=== PATIENT | female | born 1980 | race Caucasian/White ===

== ENCOUNTER 2019-04-16 02:07 | Emergency (ER) | payer OTHER ==
[~2019-04-16] VITALS: Ht 167.6 cm; Wt 49.0 kg
[2019-04-16] MEDS ORDERED: ZOFRAN ODT4 MG PO (03:40)
[2019-04-16 03:44] VITALS: BP 110/65
== END 2019-04-16 03:44 | disposition home or self-care (01) ==
LOC: M.ERS 02:07
DX: S01.01XA Laceration without foreign body of scalp, initial encounter (principal); F17.200 Nicotine dependence, unspecified, uncomplicated; W18.39XA Other fall on same level, initial encounter; Y92.89 Other specified places as the place of occurrence of the external cause; Y93.89 Activity, other specified; Y99.8 Other external cause status